=== PATIENT | female | born 1985 | race Caucasian/White ===

== ENCOUNTER 2018-01-11 18:15 | Emergency (ER) | payer SELFPAY ==
--- NOTE | 2018-01-11 19:03 | RAD REPORT ---
EXAM DESCRIPTION: CT - Head Brain Wo Cont - 01/11/2018 6:56 pm CLINICAL HISTORY: Right facial numbness COMPARISON: None. TECHNIQUE: Computed axial tomography of the head was obtained. IV contrast was not requested. All CT scans are performed using dose optimization technique as appropriate and may include automated exposure control or mA/KV adjustment according to patient size. FINDINGS: An intracranial bleed is not seen . The ventricles are normal in caliber. No extra-axial fluid collection is noted. Fluid within the sinuses/ mastoids is not seen. IMPRESSION: No acute intracranial abnormality is seen. If patient's symptoms persist MRI of the bra in would be recommended.
[2018-01-11] MEDS ORDERED: NA CHLORIDE 0.9% 1,000 ML ONE (19:18)
[2018-01-11 19:24] LABS: RBC Red Blood Cell Count 4.35 M/uL (3.86-4.86)
[2018-01-11 19:25] LABS: Absolute Lymphocytes (CBC) 3.3 K/uL (0.7-4.9); Absolute Monocytes 0.5 K/uL (0.1-1.3); Absolute Neutrophil 5.3 K/uL (1.8-8.0); Basophils % 0.4 % (0-1.3); Eosinophils % 0.9 % (0-4.4); Hematocrit 39.3 % (36.0-45.0); MCH 31.3 pg (27.0-35.0); MCV 90.3 fL (80-100); MPV 9.1 fL (7.6-11.3); Monocytes % 5.8 % (3.3-12.3)
[2018-01-11 19:26] LABS: Protime INR 0.92
[2018-01-11 19:43] LABS: ALT/SGPT 38 U/L (12-78); AST/SGOT 20 U/L (15-37); Albumin 3.6 g/dL (3.4-5.0); Alkaline Phosphatase 89 U/L (45-117); BUN Blood Urea Nitrogen 12 mg/dL (7-18); Bicarbonate 25 mmol/L (21-32); Bilirubin Direct < 0.1 mg/dL (0-0.2); Bilirubin Total 0.1 mg/dL (0.2-1.0); Glucose Level 95 mg/dL (74-106); Lipase 265 U/L (73-393); Magnesium 2.1 mg/dL (1.8-2.4); NT PRO-BNP 76 pg/mL (<125); Potassium 3.4 mmol/L (3.5-5.1); Protein, Total 7.5 g/dL (6.4-8.2); Sodium Level 141 mmol/L (136-145); Troponin (Emerg Dept Use Only) < 0.02 ng/mL (0.0-0.045)
[2018-01-11 19:51] LABS: Barbiturates NEGATIVE (NEGATIVE); Benzodiazepines NEGATIVE (NEGATIVE); Cocaine NEGATIVE (NEGATIVE); METHAMPHETAM NEGATIVE (NEGATIVE); Methadone NEGATIVE (NEGATIVE); Opiates NEGATIVE (NEGATIVE); Phencyclidine NEGATIVE (NEGATIVE); THC Cannibis POSITIVE (NEGATIVE)
--- NOTE | 2018-01-11 20:34 | ER ---
Nurse's Notes [facility] Name: Marlen Puente Age: 32 yrs Sex: Female : 1985 Arrival Date: 01/11/2018 Time: 18:17 Bed 19 Private MD: Diagnosis: Cortes's palsy Presentation: 01/11 18:23 Presenting complaint: Patient states: right facial numbness and right facial droop that aa5 began . Pt also reports headache x 3 weeks ago. Transition of care: patient was not received from another setting of care. Onset of symptoms was December 2017. Risk Assessment: Do you want to hurt yourself or someone else? Patient reports no desire to harm self or others. Initial Sepsis Screen: Does the patient meet any 2 criteria? No. Patient's initial sepsis screen is negative. Does the patient have a suspected source of infection? No. Patient's initial sepsis screen is negative. Care prior to arrival: None. 18:23 Method Of Arrival: Ambulatory aa5 18:23 Acuity: MELA 2 aa5 Triage Assessment: 18:31 Headache History: The patient has had previous headaches and this one is similar to bp previous episodes. General: Appears in no apparent distress. comfortable, Behavior is calm, cooperative, appropriate for age. Pain: Complains of pain in head Pain currently is 7 out of 10 on a pain scale. Pain began 2-3 days ago. Also complains of no other associated symptoms. EENT: No deficits noted. Neuro: Level of Consciousness is awake, alert, obeys commands, Oriented to person, place, time, situation, Appropriate for age. 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 - Social history:: Smoking status: Patient uses tobacco products, smokes one-half pack cigarettes per day. - Ebola Screening: : No symptoms or risks identified at this time. - Family history:: not pertinent. Screenin:32 Abuse screen: Denies threats or abuse. Denies injuries from another. Nutritional bp screening: No deficits noted. Tuberculosis screening: No symptoms or risk factors identified. Fall Risk None identified. Assessment: 18:33 General: Appears in no apparent distress. comfortable, Behavior is calm, cooperative, bp appropriate for age. Pain: Complains of pain in head. Neuro: Level of Consciousness is awake, alert, obeys commands, Oriented to person, place, time, situation, Appropriate for age. Cardiovascular: No deficits noted. Respiratory: Airway is patent Respiratory effort is even, unlabored, Respiratory pattern is regular, symmetrical. GI: No signs and/or symptoms were reported involving the gastrointestinal system. : No signs and/or symptoms were reported regarding the genitourinary system. EENT: No deficits noted. Derm: No deficits noted. Musculoskeletal: Circulation, motion, and sensation intact. Range of motion: intact in all extremities. 19:17 Reassessment: Patient appears in no apparent distress at this time. No changes from jd3 previously documented assessment. Patient and/or family updated on plan of care and expected duration. Pain level reassessed. Patient is alert, oriented x 3, equal unlabored respirations, skin warm/dry/pink. 20:15 Reassessment: Patient appears in no apparent distress at this time. No changes from jd3 previously documented assessment. Patient and/or family updated on plan of care and expected duration. Pain level reassessed. Patient is alert, oriented x 3, equal unlabored respirations, skin warm/dry/pink. 21:25 Reassessment: Patient appears in no apparent distress at this time. No changes from jd3 previously documented assessment. Patient and/or family updated on plan of care and expected duration. Pain level reassessed. Patient is alert, oriented x 3, equal unlabored respirations, skin warm/dry/pink. Vital Signs: 18:25 BP 150 / 89; Pulse 106; Resp 18 S; Temp 98.8(O); Pulse Ox 98% on R/A; Weight 104.33 kg aa5 (R); Height 5 ft. 3 in. (160.02 cm) (R); Pain 7/10; 19:19 BP 133 / 79; Pulse 95; Resp 16 S; Pulse Ox 98% on R/A; jd3 21:26 Pulse 96; Resp 16 S; Pulse Ox 100% on R/A; jd3 18:25 Body Mass Index 40.74 (104.33 kg, 160.02 cm) aa5 NIH Stroke Scale Scores: 19:18 NIHSS Score: 1 jd3 ED Course: 18:17 Patient arrived in ED. rg4 18:24 Triage completed. aa5 18:24 Arm band placed on. aa5 18:31 Attila Og, RN is Primary Nurse. bp 18:32 Patient has correct armband on for positive identification. Bed in low position. Call bp light in reach. Side rails up X2. 18:34 Edmar Del Rio MD is Attending Physician. veda 18:56 CT Head Brain wo Cont In Process Unspecified. EDMS 19:00 Inserted saline lock: 20 gauge in right antecubital area, using aseptic technique. bp Blood collected. 19:14 EKG done, by ED staff, reviewed by Edmar Del Rio MD. cc 20:02 XRAY Chest (1 view) In Process Unspecified. EDMS 20:34 Preet Proctor MD is Referral Physician. veda 21:24 No provider procedures requiring assistance completed. IV discontinued, intact, jd3 bleeding controlled, No redness/swelling at site. Pressure dressing applied. Administered Medications: 19:17 Drug: NS 0.9% 1000 ml Route: IV; Rate: 1 bolus; Site: right antecubital; jd3 21:11 Follow up: Response: No adverse reaction; IV Status: Completed infusion; IV Intake: jd3 1000ml 21:24 Drug: Valtrex 1000 mg Route: PO; jd3 21:24 Follow up: Response: Medication administered at discharge. jd3 21:24 Drug: predniSONE 60 mg Route: PO; jd3 21:24 Follow up: Response: No adverse reaction jd3 Intake: 21:11 IV: 1000ml; Total: 1000ml. jd3 Outcome: 20:34 Discharge ordered by . veda 21:25 Discharged to home ambulatory, with family. jd3 21:25 Condition: stable 21:25 Discharge instructions given to patient, Instructed on discharge instructions, follow up and referral plans. medication usage, Demonstrated understanding of instructions, follow-up care, medications, Prescriptions given X 3. 21:27 Patient left the ED. jd3 NIH Stroke Scale - NIH Stroke Score Date: 01/11/2018 Time: 19:18 Total Score = 1 1a. Level of Consciousness (LOC) - 0(Alert) 1b. Level of Consciousness (LOC) (Year \T\ Age) - 0(Both) 1c. LOC Commands (Open \T\ Closes Eyes/Credit Control Manager) - 0(Both) 2. Best Gaze (Lateral Gaze Paresis) - 0(Normal) 3. Visual Field Loss - 0(No visual loss) 4. Facial Palsy - 1(Minor Paralysis) 5a. Left Arm: Motor (10-second hold) - 0(No drift) 5b. Right Arm: Motor (10-second hold) - 0(No drift) 6a. Left Leg: Motor (5-second hold - always test supine) - 0(No drift) 6b. Right Leg: Motor (5-second hold - always test supine) - 0(No drift) 7. Limb Ataxia (finger/nose \T\ heel/cano - test with eyes open) - 0(Absent) 8. Sensory Loss (pinprick arms/legs/face) - 0(Normal) 9. Best Language: Aphasia (description/naming/reading) - 0(No aphasia) 10. Dysarthria (speech clarity - read or repeat words) - 0(Normal) 11. Extinction and Inattention (visual/tactile/auditory/spatial/personal) - 0(No abnormality) Initials: jd3 Signatures: Dispatcher [employer] EDNV Edmar Del Rio MD MD cha Calderon, Audri, RN RN aa5 Zainab Cho Rubi rg4 Mert Bingham RN RN jd3 Attila Og RN RN bp
--- NOTE | 2018-01-11 20:35 | EDPHYS ---
Physician Documentation [facility] Name: Marlen Puente Age: 32 yrs Sex: Female : 1985 Arrival Date: 01/11/2018 Time: 18:17 Bed 19 Private MD: ED Physician Edmar Del Rio HPI: 01/11 20:27 This 32 yrs old Female presents to ER via Ambulatory with complaints of veda Headache, Numbness Of Face. 20:27 The patient complains of pain to the forehead. veda 20:29 The patient describes the headache as aching. Onset: The symptoms/episode vead began/occurred 3 day(s) ago. The patient presents to the emergency department with right face weak, upper and lower. Onset: The symptoms/episode began/occurred 3 day(s) ago. Associated signs and symptoms: The patient has no apparent associated signs or symptoms. Severity of symptoms: At its worst the pain was mild, in the emergency department the pain is unchanged. 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 - Social history:: Smoking status: Patient uses tobacco products, smokes one-half pack cigarettes per day. - Ebola Screening: : No symptoms or risks identified at this time. - Family history:: not pertinent. ROS: 20:29 Constitutional: Negative for fever, chills, and weight loss, Eyes: Negative for injury, veda pain, redness, and discharge, ENT: Negative for injury, pain, and discharge, Neck: Negative for injury, pain, and swelling, Cardiovascular: Negative for chest pain, palpitations, and edema, Respiratory: Negative for shortness of breath, cough, wheezing, and pleuritic chest pain, Abdomen/GI: Negative for abdominal pain, nausea, vomiting, diarrhea, and constipation, Back: Negative for injury and pain, : Negative for injury, bleeding, discharge, and swelling, MS/Extremity: Negative for injury and deformity, Skin: Negative for injury, rash, and discoloration, Psych: Negative for depression, anxiety, suicide ideation, homicidal ideation, and hallucinations, Allergy/Immunology: Negative for hives, rash, and allergies, Endocrine: Negative for neck swelling, polydipsia, polyuria, polyphagia, and marked weight changes, Hematologic/Lymphatic: Negative for swollen nodes, abnormal bleeding, and unusual bruising. 20:29 Neuro: Positive for weakness, of the forehead, right eye, right cheek, right jaw, right frontal area, right temporal area, right side of forehead, right spiritism and right zygomatic area. Exam: 20:29 Constitutional: This is a well developed, well nourished patient who is awake, alert, veda and in no acute distress. Eyes: Pupils equal round and reactive to light, extra-ocular motions intact. Lids and lashes normal. Conjunctiva and sclera are non-icteric and not injected. Cornea within normal limits. Periorbital areas with no swelling, redness, or edema. ENT: Nares patent. No nasal discharge, no septal abnormalities noted. Tympanic membranes are normal and external auditory canals are clear. Oropharynx with no redness, swelling, or masses, exudates, or evidence of obstruction, uvula midline. Mucous membranes moist. Neck: Trachea midline, no thyromegaly or masses palpated, and no cervical lymphadenopathy. Supple, full range of motion without nuchal rigidity, or vertebral point tenderness. No Meningismus. Chest/axilla: Normal chest wall appearance and motion. Nontender with no deformity. No lesions are appreciated. Cardiovascular: Regular rate and rhythm with a normal S1 and S2. No gallops, murmurs, or rubs. Normal PMI, no JVD. No pulse deficits. Respiratory: Lungs have equal breath sounds bilaterally, clear to auscultation and percussion. No rales, rhonchi or wheezes noted. No increased work of breathing, no retractions or nasal flaring. Abdomen/GI: Soft, non-tender, with normal bowel sounds. No distension or tympany. No guarding or rebound. No evidence of tenderness throughout. Back: No spinal tenderness. No costovertebral tenderness. Full range of motion. Skin: Warm, dry with normal turgor. Normal color with no rashes, no lesions, and no evidence of cellulitis. MS/ Extremity: Pulses equal, no cyanosis. Neurovascular intact. Full, normal range of motion. Neuro: Awake and alert, GCS 15, oriented to person, place, time, and situation. Cranial nerves II-XII grossly intact. Motor strength 5/5 in all extremities. Sensory grossly intact. Cerebellar exam normal. Normal gait. Psych: Awake, alert, with orientation to person, place and time. Behavior, mood, and affect are within normal limits. 20:29 Head/face: Noted is right facial weakness, upper and lowetr. Vital Signs: 18:25 BP 150 / 89; Pulse 106; Resp 18 S; Temp 98.8(O); Pulse Ox 98% on R/A; Weight 104.33 kg aa5 (R); Height 5 ft. 3 in. (160.02 cm) (R); Pain 7/10; 19:19 BP 133 / 79; Pulse 95; Resp 16 S; Pulse Ox 98% on R/A; jd3 21:26 Pulse 96; Resp 16 S; Pulse Ox 100% on R/A; jd3 18:25 Body Mass Index 40.74 (104.33 kg, 160.02 cm) aa5 NIH Stroke Scale Scores: 19:18 NIHSS Score: 1 jd3 MDM: 18:34 Patient medically screened. [facility] 20:31 Data reviewed: vital signs, nurses notes, lab test result(s), EKG, radiologic studies, [facility] CT scan, plain films. 01/11 18:36 Order name: Basic Metabolic Panel; Complete Time: 20:25 [facility] 01/11 18:36 Order name: CBC with Diff; Complete Time: 20:25 [facility] 01/11 18:36 Order name: LFT's; Complete Time: 20:25 [facility] 01/11 18:36 Order name: Magnesium; Complete Time: 20:25 [facility] 01/11 18:36 Order name: NT PRO-BNP; Complete Time: 20:25 [facility] 01/11 18:36 Order name: PT-INR; Complete Time: 20:25 [facility] 01/11 18:36 Order name: Troponin (emerg Dept Use Only); Complete Time: 20:25 [facility] 01/11 18:36 Order name: XRAY Chest (1 view) [facility] 01/11 18:36 Order name: CT Head Brain wo Cont; Complete Time: 20:25 [facility] 01/11 18:36 Order name: Lipase; Complete Time: 20:25 [facility] 01/11 18:36 Order name: UDS; Complete Time: 20:25 [facility] 01/11 19:26 Order name: Urine Dipstick--Ancillary (enter results) 01/11 19:27 Order name: Urine --Ancillary (enter results) 01/11 18:36 Order name: EKG; Complete Time: 18:36 [facility] 01/11 18:36 Order name: Cardiac monitoring; Complete Time: 19:03 [facility] 01/11 18:36 Order name: EKG - Nurse/Tech; Complete Time: 19:03 [facility] 01/11 18:36 Order name: IV Saline Lock; Complete Time: 19:03 [facility] 01/11 18:36 Order name: Labs collected and sent; Complete Time: 19:03 [facility] 01/11 18:36 Order name: O2 Per Protocol; Complete Time: 19:01 [facility] 01/11 18:36 Order name: O2 Sat Monitoring; Complete Time: 19:01 [facility] 01/11 18:36 Order name: Urine Dipstick-Ancillary (obtain specimen); Complete Time: 19:26 [facility] 01/11 18:36 Order name: Urine Test (obtain specimen); Complete Time: 19:03 [facility] Administered Medications: 19:17 Drug: NS 0.9% 1000 ml Route: IV; Rate: 1 bolus; Site: right antecubital; jd3 21:11 Follow up: Response: No adverse reaction; IV Status: Completed infusion; IV Intake: jd3 1000ml 21:24 Drug: Valtrex 1000 mg Route: PO; jd3 21:24 Follow up: Response: Medication administered at discharge. jd3 21:24 Drug: predniSONE 60 mg Route: PO; jd3 21:24 Follow up: Response: No adverse reaction [facility] Disposition: 01/11/18 20:34 Discharged to Home. Impression: Cortes's palsy. - Condition is Stable. - Discharge Instructions: Cortes Palsy, Adult. - Prescriptions for Artificial Tears - apply 1 application by OPHTHALMIC route 7 times per day use as needed; 20 milliliter. Valtrex 1 g Oral Tablet - take 1 tablet by ORAL route every 8 hours for 7 days; 21 tablet. Prednisone 20 mg Oral Tablet - take 2 tablet by ORAL route once daily for 5 days; 10 tablet. - Medication Reconciliation Form, Thank You Letter, Antibiotic Education, Prescription Opioid Use form. - Follow up: Private Physician; When: 2 - 3 days; Reason: Recheck today's complaints, Continuance of care, Re-evaluation by your physician. Follow up: Preet Proctor MD; When: 2 - 3 days; Reason: Recheck today's complaints, Continuance of care, Re-evaluation by your physician. - Problem is new. - Symptoms have improved. NIH Stroke Scale - NIH Stroke Score Date: 01/11/2018 Time: 19:18 Total Score = 1 1a. Level of Consciousness (LOC) - 0(Alert) 1b. Level of Consciousness (LOC) (Year \T\ Age) - 0(Both) 1c. LOC Commands (Open \T\ Closes Eyes/Refrigeration Tech) - 0(Both) 2. Best Gaze (Lateral Gaze Paresis) - 0(Normal) 3. Visual Field Loss - 0(No visual loss) 4. Facial Palsy - 1(Minor Paralysis) 5a. Left Arm: Motor (10-second hold) - 0(No drift) 5b. Right Arm: Motor (10-second hold) - 0(No drift) 6a. Left Leg: Motor (5-second hold - always test supine) - 0(No drift) 6b. Right Leg: Motor (5-second hold - always test supine) - 0(No drift) 7. Limb Ataxia (finger/nose \T\ heel/cano - test with eyes open) - 0(Absent) 8. Sensory Loss (pinprick arms/legs/face) - 0(Normal) 9. Best Language: Aphasia (description/naming/reading) - 0(No aphasia) 10. Dysarthria (speech clarity - read or repeat words) - 0(Normal) 11. Extinction and Inattention (visual/tactile/auditory/spatial/personal) - 0(No abnormality) Initials: jd3 Signatures: Dispatcher [employer] EDEdmar Marc MD MD cha Calderon, Audri, RN RN aa5 Mert Bingham RN RN jd3 Corrections: (The following items were deleted from the chart) 20:34 20:34 01/11/2018 20:34 Discharged to Home. Impression: Cortes's palsy. Condition veda is Stable. Forms are Medication Reconciliation Form, Thank You Letter, Antibiotic Education, Prescription Opioid Use. Follow up: Private Physician; When: 2 - 3 days; Reason: Recheck today's complaints, Continuance of care, Re-evaluation by your physician. Problem is new. Symptoms have improved. veda 21:27 20:34 01/11/2018 20:34 Discharged to Home. Impression: Cortes's palsy. Condition jd3 is Stable. Forms are Medication Reconciliation Form, Thank You Letter, Antibiotic Education, Prescription Opioid Use. Follow up: Private Physician; When: 2 - 3 days; Reason: Recheck today's complaints, Continuance of care, Re-evaluation by your physician. Follow up: Preet Proctor; When: 2 - 3 days; Reason: Recheck today's complaints, Continuance of care, Re-evaluation by your physician. Problem is new. Symptoms have improved. [facility]
--- NOTE | 2018-01-11 20:40 | RAD REPORT ---
EXAM DESCRIPTION: [place] Single View01/11/2018 8:02 pm CLINICAL HISTORY: cough COMPARISON: 2012 FINDINGS: The lungs appear clear of acute infiltrate. The heart is normal size IMPRESSION: No acute abnormalities displayed
[2018-01-11] MEDS ORDERED: VALACYCLOVIR 500 MG TAB ONE (21:23)
[2018-01-11] MEDS ORDERED: predniSONE 20 MG TAB ONE (21:24)
[2018-01-11 22:22] LABS: Urine Specific Gravity 1.015 (1.005-1.030)
[2018-01-11 22:22] LABS: Urine Blood TRACE (NEG); Urine Glucose NEGATIVE (NEG); Urine Protein NEGATIVE (NEG); Urine Specific Gravity 1.015 (1.005-1.030)
--- NOTE | 2018-01-12 06:50 | EKG ---
Test Date: 2018-01-11 Test Time: 19:08:45 Secretarial Teacher: STEPH MEASUREMENT RESULTS: Intervals: Rate: 90 IA: 150 QRSD: 78 QT: 368 QTc: 450 [place]: P: 39 IA: 150 QRS: 38 T: 39 INTERPRETIVE STATEMENTS: Normal sinus rhythm Normal ECG No previous ECG available for comparison Electronically Signed On 01-12-18 06:49:41 CDT by Sathya Eubanks
== END 2018-01-11 21:27 | disposition home or self-care (01) ==
LOC: ER 18:15
DX: G51.0 Bell's palsy (principal); F17.210 Nicotine dependence, cigarettes, uncomplicated
CPT/HCPCS: 36415; 70450; 71045; 80048; 80076; 80307; 81003; 81025; 83690; 83735; 83880; 84484; 85025; 85610; 93005; 96360; 96361; 99284; J7030; J7512